=== PATIENT | male | born 1955 | race Hispanic/Latino ===

== ENCOUNTER 2023-05-24 08:01 | Day surgery (SDC) | payer MEDICARE ==
[2023-05-20 10:40] LABS: BASOPHILS # (AUTO) 0.04 K/uL (0.00-0.20); BASOPHILS % (AUTO) 0.5 % (0.0-5.0); EOSINOPHILS # (AUTO) 0.19 K/uL (0.00-0.70); EOSINOPHILS % (AUTO) 2.5 % (0.0-8.0); HEMATOCRIT 46.3 % (42-54); IMMATURE GRANULOCYTE ABSOLUTE 0.03 K/uL (0-1); LYMPHOCYTES # (AUTO) 1.8 K/uL (1.0-4.8); LYMPHOCYTES % (AUTO) 23.7 % (21.0-51.0); MEAN CORPUSCULAR HEMOGLOBIN 28.9 pg (27.0-33.0); MEAN CORPUSCULAR HGB CONC 33.3 g/dL (32.0-36.0); MONOCYTES # (AUTO) 0.7 K/uL (0.1-1.0); MONOCYTES % (AUTO) 8.9 % (3.0-13.0); NEUTROPHILS # (AUTO) 4.9 K/uL (1.8-7.7); PLATELET COUNT (AUTO) 222 K/uL (130-400); RED BLOOD CELL COUNT(AUTO) 5.32 MIL/uL (4.50-6.20); RED CELL DISTRIBUTION WIDTH 12.7 % (11.0-15.5); WHITE BLOOD COUNT (AUTO) 7.7 K/uL (4.8-10.8)
[2023-05-20 10:50] LABS: CREATININE 0.8 mg/dL (0.5-1.5); INR 0.99 (0.85-1.15); POTASSIUM 3.9 mmol/L (3.5-5.1); PROTHROMBIN TIME 11.5 SEC (9.6-11.6)
[2023-05-20 10:52] LABS: PARTIAL THROMBOPLASTIN TIME 27.1 SEC (26.3-35.5)
[2023-05-20 11:03] VITALS: BP 141/82; PULSE 60; RESP 15
[2023-05-24] VITALS (20 sets, daily range): BP systolic 117–147; BP diastolic 69–89; PULSE 58–75; RESP 9–18
[~2023-05-24] VITALS: Ht 160 cm; Wt 82.4 kg
[~2023-05-24 08:01] MED LIST: ACET-2743 PO
[2023-05-24] MEDS ORDERED: CLINDAMYCIN IVPB 600MG/50ML 50 ML IV ONE (08:02)
[2023-05-24] MEDS ORDERED: 0.9%NACL 1000ML 1,000 ML IV ONE (08:19)
[2023-05-24] MEDS ORDERED: BUPIVACAINE/PF 0.5% 30ML VIAL ONE (09:22)
[2023-05-24] MEDS ORDERED: LIDOCAINE PF 100MG/5ML (2%) SYRINGE 5ML ONE (09:41)
[2023-05-24] MEDS ORDERED: FENTANYL CITRATE PF 50 MCG/1 ML 5ML AMP IV ONE (09:41)
[2023-05-24] MEDS ORDERED: ROCURONIUM BROMIDE 10MG/1ML 5ML VL ONE (09:41)
[2023-05-24] MEDS ORDERED: MIDAZOLAM HCL 1 MG/ML 2ML VIAL ONE (09:41)
[2023-05-24] MEDS ORDERED: PROPOFOL 10 MG/ML 20ML VIAL IV ONE (09:41)
[2023-05-24] MEDS ORDERED: ONDANSETRON 4MG INJ ONE (09:42)
[2023-05-24] MEDS ORDERED: DEXAMETHASONE SOD PHOSPHATE 4 MG/ML 1ML VIAL ONE (09:42)
[2023-05-24] MEDS ORDERED: BUPIVACAINE/EPI/PF 0.5% 30ML VIAL IJ ONE (10:09)
[2023-05-24] MEDS ORDERED: GLYCOPYRROLATE 0.2 MG/ML 5 ML VIAL ONE (10:15)
[2023-05-24] MEDS ORDERED: NEOSTIGMINE METHYLSULFATE 1MG/ML IV ONE (10:15)
[2023-05-24] MEDS ORDERED: EPHEDRINE SULFATE 50 MG/ML AMPULE ONE (10:17)
[2023-05-24] MEDS ORDERED: ROPIVACAINE 0.5% 5MG/ML 30ML ONE (10:26)
[2023-05-24] MEDS ORDERED: DOCU-116 PO (10:35)
[2023-05-24] MEDS ORDERED: TRAM50TA4 PO (10:35)
[2023-05-24] MEDS ORDERED: GABA-529 PO (10:35)
[2023-05-24] MEDS ORDERED: METH-662 PO (10:35)
[2023-05-24] MEDS ORDERED: KETOROLAC 30MG VIAL (30MG/ML) ONE (10:36)
[2023-05-24] MEDS ORDERED: SUGAMMADEX SODIUM 200 MG/2 ML VIAL IV ONE (11:02)
== END 2023-05-24 13:30 | disposition home or self-care (01) ==
LOC: DAH 08:01
PROVIDERS: ATTEND Surgery
DX: K43.0 Incisional hernia with obstruction, without gangrene (principal); E11.9 Type 2 diabetes mellitus without complications; Z79.01 Long term (current) use of anticoagulants; Z79.899 Other long term (current) drug therapy; Z88.0 Allergy status to penicillin; Z90.49 Acquired absence of other specified parts of digestive tract; Z98.890 Other specified postprocedural states
CPT/HCPCS: 80048; 85025; 85610; 85730; 36415; 93005; 49592; 82948 ×2; 64488; A6260; J1100; A4663; J7030 ×3; J3010; J3490 ×5; J2001; J2250; J2704; J2405; J1885; J2710; J0665; J2795; A4649 ×2; A4930 ×2; A4215; A4223; A4222; A4221; A4600